=== PATIENT | male | born 1985 | race Caucasian/White ===

== ENCOUNTER → 2019-03-27 16:59 | Outpatient (CLI) | payer SELFPAY | PROVIDERS: Visit Provider Physician Assistant | DX: L02.91 Cutaneous abscess, unspecified (principal) | CPT/HCPCS: 87070; 87075; 87077; 87147; 87186; 87205 ==

== ENCOUNTER → 2019-07-17 13:47 | Outpatient (CLI) | payer OTHER, SELFPAY ==
--- NOTE | 2019-07-17 13:48 | DI.RAD.S_ITS ---
PROCEDURE: XR ANKLE RT MIN 3V INDICATIONS: Right ankle pain TECHNIQUE: 3 views of the ankle were acquired. COMPARISON: None. FINDINGS: Bones: No fractures or dislocations. Ankle mortise is normally aligned. No suspicious bony lesions. Soft tissues: No tibiotalar joint effusion. Achilles tendon appears normal. IMPRESSION: Normal for age, source of new right ankle pain not found. Dictated by: Roberto Azar M.D. on 07/17/2019 at 15:16 Approved by: Roberto Azar M.D. on 07/17/2019 at 15:16
== END ==
PROVIDERS: PCP Family Medicine; Referring Provider Family Medicine; Visit Provider Family Medicine
DX: M25.571 Pain in right ankle and joints of right foot (principal); G89.29 Other chronic pain
CPT/HCPCS: 73610

== ENCOUNTER → 2023-01-30 16:08 | Outpatient (CLI) | payer OTHER, SELFPAY ==
--- NOTE | 2023-01-30 16:09 | DI.US.S_ITS ---
PROCEDURE: US ABDOMEN LIMITED INDICATIONS: RIGHT LOWER QUADRANT/RIGHT GROIN PAIN ?HERNIA TECHNIQUE: Real-time focused scanning was performed of the abdomen, with image documentation. COMPARISON: None. FINDINGS: No visualized hernia. No fluid collections or other abnormality. IMPRESSION: Unremarkable exam. No hernia visualized. Dictated by: Tiffany Cruz M.D. on 01/30/2023 at 17:34 Approved by: Tiffany Cruz M.D. on 01/30/2023 at 17:34
== END ==
PROVIDERS: PCP Family Medicine; Referring Provider Family Medicine; Visit Provider Family Medicine
DX: K40.90 Unilateral inguinal hernia, without obstruction or gangrene, not specified as recurrent (principal); R03.0 Elevated blood-pressure reading, without diagnosis of hypertension
CPT/HCPCS: 76705

== ENCOUNTER → 2024-09-05 09:35 | Outpatient (CLI) | payer OTHER, SELFPAY ==
--- NOTE | 2024-09-05 09:36 | DI.US.S_ITS ---
PROCEDURE: US SCROTUM INDICATIONS: RIGHT GROIN/SCROTUM PAIN X 3-4 WEEKS TECHNIQUE: Real-time scanning was performed of the scrotum and testicles, with image documentation. Color and pulse Doppler interrogation was performed of both testicles. COMPARISON: None. FINDINGS: Right: Testicle is normal in size at 5.8 x 4.4 x 2.4 cm, and demonstrates multiple intratesticular cysts, without abnormal vascularity. The largest measures 2 mm. A scrotal tomer can be seen on the right. Epididymis is normal in overall size and morphology. There is a small right-sided hydrocele. Overlying scrotal skin is normal in thickness. Left: Testicle is normal in size at 5.1 x 3.5 x 2.2 cm, and demonstrates multiple intratesticular cysts. Epididymis is normal in overall size and demonstrates multiple epididymal head cysts, with the largest measuring up to 3 mm. No hydrocele. Overlying scrotal skin is normal in thickness. Doppler: Color and pulse Doppler demonstrate normal and symmetric arterial flow in both testicles. No varicocele is seen on either side. No right groin hernia can be seen. Multiple prominent right groin lymph nodes are seen, with the largest measuring 3.1 x 1.2 x 1 cm and 1.4 x 1.1 x 0.9 cm. IMPRESSION: No acute testicular abnormality can be seen. Negative for testicular torsion. No right groin hernia is seen. Prominent groin lymph nodes can be seen. There is a small right-sided hydrocele. Multiple small testicular cysts can be seen, which are not regarded to be frankly pathologic. Dictated by: Kory Pimentel M.D. on 09/05/2024 at 10:44 Approved by: Kory Pimentel M.D. on 09/05/2024 at 10:46
== END ==
PROVIDERS: PCP Nurse Practitioner Family; Referring Provider Nurse Practitioner Family; Visit Provider Nurse Practitioner Family
DX: N50.82 Scrotal pain (principal); N50.819 Testicular pain, unspecified; N43.3 Hydrocele, unspecified; N50.3 Cyst of epididymis; N44.2 Benign cyst of testis
CPT/HCPCS: 76870; 93975

== ENCOUNTER → 2024-09-07 08:13 | Outpatient (CLI) | payer OTHER, SELFPAY ==
[2024-09-07 10:06] LABS: Appearance Urine UA CLEAR; Bilirubin Urine UA NEGATIVE (NEGATIVE); Color Urine UA YELLOW; Glucose Urine UA NEGATIVE (Negative); Ketones Urine UA NEGATIVE (NEGATIVE); Leukocyte Esterase Urine UA NEGATIVE (NEGATIVE); Nitrite Urine UA NEGATIVE (Negative); Occult Blood Urine UA NEGATIVE (Negative); Protein Urine UA NEGATIVE (Negative); Specific Gravity Urine UA <=1.005 (1.000-1.035); Urobilinogen Urine UA 0.2 E.U./dL (0.2)
[2024-09-07 10:37] LABS: Bacteria Urine None Seen; RBC Urine None Seen (0-5/HPF); Urine Volume 10mL (spun); WBC Urine None Seen (0-5/HPF)
[2024-09-07 10:38] LABS: Culture Indicated Urine Cult Not Indicated; Squamous Epithelial Cell Urine None Seen (0-5/HPF)
[2024-09-07 11:37] LABS: Urine N gonorrhoeae NOT DETECTED
[2024-09-07 12:18] LABS: Urine Chlamydia NOT DETECTED
[2024-09-07 14:51] LABS: Hepatitis B Surface Antigen NEGATIVE s/c (NEGATIVE)
[2024-09-07 15:09] LABS: HIV 1 & 2 Ab/Ag 4th Gen Combo NEGATIVE (NEGATIVE); Hep C Virus Ab w/Reflex Quant NEGATIVE s/c (NEGATIVE)
[2024-09-08 05:08] LABS: HSV 1 IGG AB Non Reactive (Non Reactive); HSV 2 IGG AB Non Reactive (Non Reactive)
[2024-09-08 06:10] LABS: RPR Screen Non Reactive (Non Reactive)
== END ==
LOC: LAB 08:14
PROVIDERS: PCP Nurse Practitioner Family; Referring Provider Nurse Practitioner Family; Visit Provider Nurse Practitioner Family
DX: R59.0 Localized enlarged lymph nodes (principal)
CPT/HCPCS: 36415; 81001; 86592; 86695; 86696; 86803; 87340; 87389; 87491; 87591

== ENCOUNTER → 2024-09-12 08:26 | Outpatient (CLI) | payer OTHER, SELFPAY ==
[2024-09-12 09:15] LABS: Add Manual Diff / Slide Review NO; Basophils Absolute Auto 100 /uL (0-100); Basophils Percent Auto 1.3 % (0-2); Eosinophils Absolute Auto 100 /uL (0-450); Eosinophils Percent Auto 2.5 % (2-4); Hematocrit 40.5 % (41-53); Hemoglobin 14.3 g/dL (13.5-17.5); Lymphocytes Absolute Auto 1500 /uL (1100-4500); Lymphocytes Percent Auto 26.6 % (25-40); Mean Corpuscular HGB Conc 35.4 % (30-36); Mean Corpuscular Hemoglobin 32.8 PG (26-34); Mean Corpuscular Volume 92.6 fL (80-100); Monocytes Absolute Auto 600 /uL (0-900); Neutrophils Absolute Auto 3300 /uL (1500-7000); Neutrophils Percent Auto 59.6 % (50-75); Platelet Count 242 X10^3/uL (150-400); Red Blood Cell Count 4.37 X10^6/uL (4.5-5.9); Red Cell Distribution Width 12.8 % (11.6-14.8); White Blood Cell Count 5.6 X10^3/uL (4.5-11.0)
[2024-09-12 09:46] LABS: C-Reactive Protein Quant < 0.5 mg/dL (<1.0); Cholesterol 235 mg/dL (140-199); HDL Cholesterol 63 mg/dL (40-60); LDL Cholesterol Calculated 149 mg/dL (<100); Triglycerides 115 mg/dL (35-150)
[2024-09-12 10:19] LABS: Erythrocyte Sedimentation Rate 4 MM/HR (0-15)
[2024-09-13 07:36] LABS: PSA, Total 0.6 ng/mL (0.0-4.0)
== END ==
LOC: LAB 08:27
PROVIDERS: PCP Nurse Practitioner Family; Referring Provider Nurse Practitioner Family; Visit Provider Nurse Practitioner Family
DX: Z13.220 Encounter for screening for lipoid disorders (principal); R35.1 Nocturia; Z68.30 Body mass index [BMI] 30.0-30.9, adult
CPT/HCPCS: 36415; 80061; 83036; 84153; 84154; 85025; 85651; 86140